=== PATIENT | male | born 1970 | race Caucasian/White ===

== ENCOUNTER → 2017-07-13 | Outpatient (CLI) | payer OTHER ==
[2017-07-13 10:49] LABS: BASO % 0.7 %; BASO ABS # 0.04 K/uL (0-0.2); EOS % 2.8 %; EOS ABS # 0.15 K/uL (0-0.5); HEMATOCRIT 46.7 % (42-52); IG# 0.01 K/uL (0.00-0.02); LYMPH % 39.5 %; LYMPH ABS # 2.13 K/uL (1.2-3.4); MEAN CELL VOLUME 92.7 fL (80-100); MEAN CORPUSCULAR HEMOGLOBIN 33.7 pg (25-34); MEAN CORPUSCULAR HGB CONC 36.4 g/dl (32-36); MEAN PLATELET VOLUME 9.5 fL (7.4-10.4); MONO % 8.2 %; MONO ABS # 0.44 K/uL (0.11-0.59); NEUT % 48.6 %; NEUT ABS # 2.62 K/uL (1.4-6.5); PLATELET COUNT 243 K/uL (130-400); RED CELL DISTRIBUTION WIDTH CV 12.4 % (11.5-14.5); RED CELL DISTRIBUTION WIDTH SD 41.7 fL (36.4-46.3); WHITE BLOOD COUNT 5.39 K/uL (4.8-10.8)
[2017-07-13 11:01] LABS: ALBUMIN 3.9 gm/dl (3.4-5.0); ALT/SGPT 61 U/L (12-78); AST/SGOT 25 U/L (15-37); BLOOD UREA NITROGEN 17 mg/dl (7-18); CALCIUM 8.8 mg/dl (8.5-10.1); CARBON DIOXIDE 31 mmol/L (21-32); CREATININE 0.97 mg/dl (0.60-1.40); GLUCOSE 87 mg/dl (70-99); SODIUM 139 mmol/L (136-145)
[2017-07-13 11:14] LABS: ALKALINE PHOSPHATASE 54 U/L (45-117); CHOLESTEROL 176 mg/dl (0-200); LDL CHOLESTEROL CALCULATED 112 mg/dl; TOTAL PROTEIN 7.3 gm/dl (6.4-8.2)
== END | disposition home or self-care (01) ==
LOC: C.LAB1850 08:19
PROVIDERS: ATTEND Neuromusculoskeletal Medicine & OMM
DX: Z00.00 Encounter for general adult medical examination without abnormal findings (principal); I10 Essential (primary) hypertension; R53.83 Other fatigue